=== PATIENT | female | born 1995 | race African-American/Black ===

== ENCOUNTER 2021-03-10 07:47 | Emergency (ER) | payer SELFPAY ==
[~2021-03-10] VITALS: Ht 157.5 cm; Wt 91.0 kg
[2021-03-10] MEDS ORDERED: ACETAMINOPHEN 325MG TABLET PO ONE (08:15)
[2021-03-10 10:15] VITALS: BP 132/85
[2021-03-10] MEDS ORDERED: IBUP-2029 MT (11:33)
== END 2021-03-10 11:36 | disposition home or self-care (01) ==
LOC: ER 07:51
DX: S43.014A Anterior dislocation of right humerus, initial encounter (principal); Z88.8 Allergy status to other drugs, medicaments and biological substances; Z79.899 Other long term (current) drug therapy; X50.9XXA Other and unspecified overexertion or strenuous movements or postures, initial encounter; Y93.89 Activity, other specified; Y92.89 Other specified places as the place of occurrence of the external cause; Y99.8 Other external cause status
CPT/HCPCS: 73030; 81025; 99283

== ENCOUNTER 2024-10-10 15:54 | Emergency (ER) | payer OTHER ==
[~2024-10-10] VITALS: Ht 157.5 cm; Wt 90.0 kg
[~2024-10-10 15:54] MED LIST: IBUP-2029 MT
[2024-10-10 16:00] VITALS: O2SAT 99
[2024-10-10] MEDS: ACETAMINOPHEN 325MG TABLET PO ONE (18:05)
[2024-10-10 18:34] LABS: RESPIRATORY SYNCYTIAL VIRUS Not Detected (Not Detectd)
[2024-10-10 18:35] LABS: INFLUENZA TYPE A Presumptive Negative (Pres. Neg.); INFLUENZA TYPE B Presumptive Negative (Pres. Neg.)
[2024-10-10 18:45] VITALS: BP 125/75; PULSE 99; RESP 14; TEMP 36.5; O2SAT 98
[2024-10-10] MEDS ORDERED: IBUP-2028 MT (18:49)
== END 2024-10-10 18:55 | disposition home or self-care (01) ==
LOC: ER 15:54
DX: J02.9 Acute pharyngitis, unspecified (principal); B34.9 Viral infection, unspecified; Z98.890 Other specified postprocedural states; Z79.899 Other long term (current) drug therapy; Z20.822 Contact with and (suspected) exposure to COVID-19
CPT/HCPCS: 87070; 87420; 87426; 87430; 87804; 99283

== ENCOUNTER 2025-03-13 09:11 | Emergency (ER) | payer OTHER ==
[~2025-03-13] VITALS: Ht 157.5 cm; Wt 95.0 kg
[~2025-03-13 09:11] MED LIST changes: +IBUP-1455 MT; +IBUP-2028 MT; -IBUP-2029 MT
[2025-03-13 09:16] VITALS: O2SAT 100
[2025-03-13 10:41] VITALS: BP 149/93; PULSE 85; RESP 15; TEMP 36.7; O2SAT 100
== END 2025-03-13 10:44 | disposition home or self-care (01) ==
LOC: ER 09:11
DX: M25.562 Pain in left knee (principal); I87.1 Compression of vein
CPT/HCPCS: 93970; 99284